=== PATIENT | male | born 1945 | race Caucasian/White ===

== ENCOUNTER 2020-07-27 15:57 | Emergency (ER) | payer OTHER ==
[~2020-07-27] VITALS: Ht 182.9 cm; Wt 84.0 kg
[~2020-07-27 15:57] MED LIST: ACID1TAB7 PO; ALBU8.5H8 INH; ANTACID PO; ASPI325T17 PO; ATOR-2 PO; BP MED PO; STATIN PO; TAMS-11 PO; ZOLP-413 PO
[2020-07-27] MEDS ORDERED: PROPARACAINE OPHTH 0.5%, 15ML RIGHTEYE ONE (16:22)
[2020-07-27] MEDS ORDERED: PROPARACAINE OPHTH 0.5%, 15ML ONE ×2 (16:25→16:29)
[2020-07-27] MEDS ORDERED: DIPHENHYDRAMINE 50 MG/ML, 1ML ONE (16:29)
[2020-07-27] MEDS ORDERED: METOCLOPRAMIDE 5 MG/ML, 2ML ONE (16:29)
[2020-07-27] MEDS ORDERED: DIPHENHYDRAMINE 50 MG/ML, 1ML IVPush ONE (16:30)
[2020-07-27] MEDS ORDERED: SODIUM CHLORIDE 0.9% 1,000ML IVBOLUS ONE (16:30)
[2020-07-27] MEDS ORDERED: METOCLOPRAMIDE 5 MG/ML, 2ML IVPush ONE (16:30)
[2020-07-27] MEDS ORDERED: SODIUM CHLORIDE FLUSH 10ML SYR IVF ONE (16:30)
[2020-07-27 16:39] LABS: HCT (SEDRATE) 42.7 % (39.2-51.8)
[2020-07-27 16:40] LABS: BASOPHILS % (AUTO) 1 % (0-1); EOSINOPHILS % (AUTO) 2 % (1-7); LYMPHOCYTES % (AUTO) 21 % (22-44); MEAN CORPUSCULAR HEMOGLOBIN 31.6 pg (27.5-34.5); MEAN CORPUSCULAR HGB CONC 33.9 g/dL (33.2-36.2); MEAN PLATELET VOLUME 9.2 fL (7.4-10.4); MONOCYTES % (AUTO) 9 % (2-9); NEUTROPHILS % (AUTO) 67 % (42-75); PLATELET COUNT 202 x10^3/uL (130-400); RED BLOOD COUNT 4.58 x10^6/uL (4.38-5.82); RED CELL DISTRIBUTION WIDTH 13.2 % (9.4-14.8)
[2020-07-27 16:53] LABS: ALBUMIN 3.7 g/dL (3.4-5.0); ANION GAP 7 mmol/L (5-15); CALCIUM 8.5 mg/dL (8.5-10.1); CHLORIDE 111 mmol/L (98-107); INTERNATIONAL NORMALIZED RATIO 1.1 (0.93-1.1); PROTHROMBIN TIME 11.7 Seconds (9.6-11.5)
[2020-07-27 16:54] LABS: CREATININE 1.63 mg/dL (0.7-1.3)
[2020-07-27 16:56] LABS: MD NO
--- NOTE | 2020-07-27 18:35 | NUR ---
to mri via [facility]
--- NOTE | 2020-07-27 18:39 | NUR ---
discusseed vs, and pain with md new orders received
--- NOTE | 2020-07-27 19:01 | NUR ---
Report received from HUGH Hassan. This RN to assume care. Patient in MRI.
--- NOTE | 2020-07-27 19:10 | NUR ---
Patient returned from MRI. Admin meds per aug.
--- NOTE | 2020-07-27 19:34 | NUR ---
Awaiting MRI results.
[2020-07-27] MEDS ORDERED: ENALAPRILAT 1.25 MG/ML, 2ML IV ONE (20:30)
--- NOTE | 2020-07-27 21:07 | NUR ---
Discharge instructions given. All questions and concerns addressed. Patient ambulatory with a steady gait. Belongings with patient.
[2020-07-27 21:08] VITALS: BP 156/69
== END 2020-07-27 21:10 | disposition home or self-care (01) ==
LOC: ED 18:18
DX: G44.039 Episodic paroxysmal hemicrania, not intractable (principal); F17.210 Nicotine dependence, cigarettes, uncomplicated; H53.149 Visual discomfort, unspecified; R94.31 Abnormal electrocardiogram [ECG] [EKG]; Z86.73 Personal history of transient ischemic attack (TIA), and cerebral infarction without residual deficits
CPT/HCPCS: 36415; 70450; 70551; 80048; 82040; 85025; 85610; 85651; 85730; 93005; 96361; 96374; 96375; 99285; 99406; J1200; J2765; J7030